=== PATIENT | male | born 2000 ===

== ENCOUNTER 2023-12-13 18:12 | Emergency (ER) | payer BC, SELFPAY ==
[2023-12-13] MEDS ORDERED: Fluorescein Opthalmic Strip ONE (18:35)
[2023-12-13] MEDS ORDERED: Tetracaine 0.5% PF 4 ML BOT ONE (18:35)
== END 2023-12-13 19:00 | disposition home or self-care (01) ==
LOC: CSHERS 18:12
DX: T15.02XA Foreign body in cornea, left eye, initial encounter (principal)
CPT/HCPCS: 99283